=== PATIENT | male | born 1975 | race Caucasian/White ===

== ENCOUNTER 2017-03-22 20:35 | Emergency (ER) | payer OTHER ==
[~2017-03-22 20:35] MED LIST: ALPRAZOLAM PO; AMITRYPTYLINE PO; ANTIDEPRESSANT; CHOLESTEROL MED; DELTASONE20 MG PO; DICYCLOMINE HCL20 MG PO; EFFEXOR PO; EFFEXOR XR PO; LORTAB 10/500 T1 TAB PO; NABUMETONE PO; NILSTAT PO; REFLUX MED; ULTRAM PO; ZITHROMAX PO; [UNRECOGNIZED DRUG - OTHER]
[2017-03-22] MEDS ORDERED: EFFEXOR (20:44)
[2017-03-22] MEDS ORDERED: NORVASC PO (20:45)
[2017-03-22] MEDS ORDERED: HYZAAR 100-12.1 EACH (20:45)
[2017-03-22] MEDS ORDERED: FLEXERIL10 MG (20:45)
[2017-03-22] MEDS ORDERED: CELECOXIB200 MG (20:45)
[2017-03-22] MEDS ORDERED: VISTARIL (20:45)
[2017-03-22] MEDS ORDERED: PERCOCET 7.5-31 EACH (20:46)
[2017-03-22] MEDS ORDERED: PRAVACHOL (20:46)
[2017-03-22] MEDS ORDERED: PRILOSEC (20:46)
== END 2017-03-22 22:22 | disposition home or self-care (01) ==
LOC: SED 20:35
DX: T78.49XA Other allergy, initial encounter (principal); L05.91 Pilonidal cyst without abscess; I10 Essential (primary) hypertension; J45.909 Unspecified asthma, uncomplicated; F32.9 Major depressive disorder, single episode, unspecified; F17.210 Nicotine dependence, cigarettes, uncomplicated; Z79.899 Other long term (current) drug therapy; Z88.0 Allergy status to penicillin; Z91.041 Radiographic dye allergy status
CPT/HCPCS: 96372; 99283; J2930